=== PATIENT | female | born 1945 | race Caucasian/White ===

== ENCOUNTER 2017-02-03 11:41 | Emergency (ER) | payer MEDICARE, OTHER ==
[2017-02-03] MEDS ORDERED: Bupivacaine 0.5% 10 ML VIAL ONE (12:21)
--- NOTE | 2017-02-03 13:05 | RAD ---
3 VIEWS OF LEFT WRIST: Date: 02/03/17 HISTORY: Trauma, pain, fall. FINDINGS: There is an obliquely oriented, mildly displaced fracture at the base of the ulnar styloid. There is a comminuted, impacted distal left radial fracture with extension into the distal radial ulnar joint and the radiocarpal joint. The lateral exam demonstrates prominent posterior displacement of the dist al radial fracture fragment measuring approximately 1.0 cm. There is significant impaction. IMPRESSION: Comminuted, displaced interarticular fracture of the distal left radius with an associated ulnar styl oid fracture. POS: JUSTINO
--- NOTE | 2017-02-03 15:40 | RAD ---
LEFT WRIST THREE VIEW 02/03/17 HISTORY: Post reduction. COMPARISON: Wrist radiographs same day. FINDINGS: There is similar alignment of the intra-articular distal radius fracture with dorsal displacement of the one half shaft width and mild dorsal angulation. Ulnar styloid fracture is similar. Scapholunate interval appears relatively well maintained. IMPRESSION: Similar appearance of the distal radial and ulnar fractures. POS: C
== END 2017-02-03 13:50 | disposition home or self-care (01) ==
LOC: SCSER 11:41
DX: S52.502A Unspecified fracture of the lower end of left radius, initial encounter for closed fracture (principal); S52.602A Unspecified fracture of lower end of left ulna, initial encounter for closed fracture; E78.5 Hyperlipidemia, unspecified; I10 Essential (primary) hypertension; W01.0XXA Fall on same level from slipping, tripping and stumbling without subsequent striking against object, initial encounter
CPT/HCPCS: 25605; J3490

== ENCOUNTER 2017-02-07 08:35 | Outpatient (CLI) | payer MEDICARE ==
[2017-02-07 09:39] LABS: Hematocrit 44.5 % (36.0-47.0); Mean Platelet Volume 7.5 fL (7.4-10.4); Red Blood Cell (RBC) Count 4.64 mill/uL (4.20-5.40); White Blood Cell (WBC) Count 5.3 thou/uL (4.8-10.8)
[2017-02-07 09:52] LABS: Bilirubin Negative (Negative); Blood, Urine Negative (Negative); Glucose, Urine (Dipstick) Negative (Negative); Ketone, Urine Negative (Negative); Nitrite Negative (Negative); Protein, Urine (Dipstick) Negative (Neg-Trace)
[2017-02-07 09:58] LABS: Bacteria/HPF None Seen HPF (None Seen); Hyaline Casts/LPF 0-3 HYALINE CAST LPF (0-3 Hyaline); RBC/HPF 0-3 HPF (0-3); Squamous Epithelial 0-3 HPF (0-3); WBC/HPF 0-3 HPF (0-3)
[2017-02-07 10:04] LABS: Anion Gap 11 mmol/L (10-20); BUN (Urea Nitrogen) 18 mg/dL (9.8-20.1); Calc. Creatinine Clearance 0 mL/min (70-130); Calcium 9.6 mg/dL (7.8-10.44); Carbon Dioxide 30 mmol/L (23-31); Chloride 102 mmol/L (98-107); Estimated GFR-MDRD 89
== END 2017-02-07 08:36 | disposition home or self-care (01) ==
LOC: LABBT 08:35
PROVIDERS: ATTEND Orthopaedic Surgery
DX: Z01.818 Encounter for other preprocedural examination (principal); S62.102D Fracture of unspecified carpal bone, left wrist, subsequent encounter for fracture with routine healing
CPT/HCPCS: 80048; 81001; 85027; 93005; 93010

== ENCOUNTER 2017-02-09 05:48 | Day surgery (SDC) | payer MEDICARE ==
[2017-02-07 08:49] VITALS: BMI 25.0
[2017-02-09] MEDS ORDERED: Midazolam HCl 2 mg/2 ml Vial ONE (06:26)
[2017-02-09] MEDS ORDERED: Fentanyl 100 MCG/2 ML VIAL ONE (06:26)
[2017-02-09] MEDS ORDERED: CEFAZOLIN/Water 2 GM/20 ML SYRINGE ONE (06:28)
[2017-02-09] MEDS ORDERED: Bupivacaine/Epinephrine 0.25% 30 ML VIAL ONE (06:35)
--- NOTE | 2017-02-09 09:27 | OP ---
DATE OF PROCEDURE: 02/09/2017 PREOPERATIVE DIAGNOSIS: Left distal radius fracture, extraarticular colles fracture. POSTOPERATIVE DIAGNOSIS: Left distal radius fracture, extraarticular colles fracture. PROCEDURE PERFORMED: 1. Open reduction and internal fixation of left distal radius fracture. 2. Splint short arm. STAFF: Shahzad Higginbotham M.D. PAN PULLER: JHON Velazquez ANESTHESIA: Louis Ku. The patient received a LMA intubation with a single- shot supraclavicular block. ESTIMATED BLOOD LOSS: 30 mL. TOURNIQUET TIME: 35 minutes. ANTIBIOTICS: Ancef 2 grams. IMPLANTS: A 2.4 VA LCP distal radius plate Synthes with x4 2-4 screws and x3 2- 7 screws. COMPLICATIONS: None. HISTORY OF PRESENT ILLNESS: Ms. Denis is a pleasant 71-year-old right hand dominant female who presented with a left distal radius fracture. The patient is right hand dominant, history of pheochromocytoma as well as chronic myelogenous leukemia and currently in remission. The patient had a fall. The patient was brought to my office. I discussed risks and benefits of improving her dorsal tilt to include pain, scar, bleeding, infection, damage to vital structures, decreased range of motion or strength, further procedures, continued pain despite surgical intervention, need for further surgeries, damage to tendons, loss of life and limb. She understood these risks and benefits and elected to proceed. PROCEDURE IN DETAIL: Time out was performed designating the patient's left upper extremity as operative site based on sight, consents and markings. At completion of timeout, the patient's left upper extremity was prepped and draped in sterile fashion. Tourniquet was brought up and was left up for a total of 35 minutes. The patient had an anterior incision made over the FCR, split down on the FCR was retracted ulnarly. The patient's fascia was opened up , we then came down on the FPL as well as her pronator quadratus, sharply elevated the pronator quadratus to expose the distal radius and fracture site. We picked out a 2-4 7-hole plate to place onto the distal radius, under AP and lateral radiographs the fracture was reduced. We pinned it distally. We then placed a single screw in the shaft. After we had placed a single screw in the shaft, I liked the overall alignment of the wrist. We then sequentially filled 4 distal screws from the inside out, drilling bicortically measuring 2 mm shorter. Being happy with the placement of the distal radius I placed our final 2.7 screws proximally, looked under AP lateral ulnar deviated views as well as pronator views, showed the screws out of the joint line. We had improved alignment of the bone, had overall good apposition. I liked the length , radial height and volar tilt. We then washed. We closed with 1 stitch in the pronator quadratus, closed subcu and used nylon. We then let the tourniquet down after 35 minutes. We then placed the patient in a volar splint. The patient has pain medications at home, Tramadol for pain. The patient will follow up with me in about for 10-14 days for suture removal. The patient will follow up in 2 weeks and we will remove sutures at that time. ARNEL
--- NOTE | 2017-02-09 15:17 | RAD ---
INTRAOPERATIVE FLUOROSCOPIC IMAGES LEFT WRIST: 02/09/2017 HISTORY: ORIF left wrist fracture. COMPARISON: Studies on 02/03/2017. FINDINGS: There have been interval postsurgical changes related to internal fixation of the distal left radial fracture with volar plate and screws transfixing the fracture. There is improvement in alignment of the fracture fragments. No hardware complication seen. Fracture of the ulnar styloid process is aga in present. No other interval change. IMPRESSION: 1. Internal fixation of distal left radial metaphyseal fracture. 2. Fracture of ulnar styloid process. POS: OFF
[2017-02-09] MEDS ORDERED: Propofol 200 MG/20 ML VIAL ONE (15:52)
[2017-02-09] MEDS ORDERED: Ondansetron HCl/PF 4 MG/2 ML Vial ONE (15:52)
[2017-02-09] MEDS ORDERED: Lidocaine 1% PF 5 ML VIAL ONE (15:52)
[2017-02-09] MEDS ORDERED: Ketorolac Tromethamine 30 MG/ML VIAL ONE (15:52)
== END 2017-02-09 10:15 | disposition home or self-care (01) ==
LOC: SDC 05:48
PROVIDERS: ATTEND Orthopaedic Surgery
PROC: 0PSJ04Z Reposition Left Radius with Internal Fixation Device, Open Approach (ICD-10-PCS; principal; 2017-02-09)
DX: S52.532A Colles' fracture of left radius, initial encounter for closed fracture (principal); I10 Essential (primary) hypertension; Z79.899 Other long term (current) drug therapy; Z91.048 Other nonmedicinal substance allergy status; Z90.89 Acquired absence of other organs; Z90.710 Acquired absence of both cervix and uterus; Z86.03 Personal history of neoplasm of uncertain behavior
CPT/HCPCS: 76001; C1713; J1885; J2001; J2250; J2405; J2704; J3010